=== PATIENT | male | born 1950 | race Caucasian/White ===

== ENCOUNTER 2018-09-25 02:40 | Emergency (ER) | payer MEDICARE, OTHER ==
[~2018-09-25] VITALS: Ht 180.3 cm; Wt 116.6 kg
[2018-09-25] MEDS ORDERED: FAMOTIDINE 20MG/2ML IV (PEPCID) IVP ONE (03:00)
[2018-09-25] MEDS ORDERED: ASPIRIN 81 MG CHEW (CHILDREN'S ASA) PO ONE (03:00)
[2018-09-25] MEDS ORDERED: NITROGLYCERIN 0.4 MG SL TABS BTL 25'S SL PRN (03:00)
--- NOTE | 2018-09-25 03:12 | ED Chest Pain ---
General Chief Complaint: Chest Pain Stated Complaint: CHEST PAIN Nursing Triage Note: PT COMPLAINING OF CHEST PAIN THAT STARTED LAST NIGHT AND AGAIN TONIGHT. PT'S PAIN RADIATING DOWN BOTH ARMS AND PT COMPLAINING OF NAUSEA WELL. PT HAS A HX OF STENT PLACEMENT Nursing Sepsis Screen: No Definite Risk Source: patient Exam Limitations: no limitations History of Present Illness Date Seen by Provider: Sep 25, 2018 Time Seen by Provider: 03:00 Initial Comments Patient is a 68-year-old male with known history of CAD with remote stent placement who presents with epigastric chest discomfort radiating to bilateral shoulders down through his elbows. Since the onset was 2 hours ago after going to bed. Patient took 1 baby aspirin after symptoms began which they have provided improvement.Residual pain is now rated as mild to moderate. Associated symptoms include nausea and sweats. Denies shortness of breath. No leg pain or swelling. Denies fever chills. Denies abdominal pain. Patient states he had a similar episode of chest pain last evening after going to bed but did not have chest pain throughout the day yesterday. Patient states his last treadmill stress test was approximately 4 years ago. Timing/Duration: 1-3 hours Severity/Quality: moderate Location: substernal Radiation: shoulders Activities at Onset: sleep Prior CP/Workup: cardiac cath Modifying Factors: improves with lying down ASA po ORTHO RN: Yes NTG SL ORTHO RN: No Associated Symptoms: heartburn, nausea/vomiting Allergies and Home Medications Allergies Coded Allergies: simvastatin (Verified Allergy, Unknown, 09/25/18) Patient Home Medication List Home Medication List Reviewed: Yes Review of Systems Review of Systems Constitutional: no symptoms reported EENTM: No Symptoms Reported Respiratory: No Symptoms Reported Cardiovascular: See HPI Gastrointestinal: See HPI Genitourinary: No Symptoms Reported Musculoskeletal: no symptoms reported Skin: no symptoms reported Endocrine: No Symptoms Reported Hematologic/Lymphatic: No Symptoms Reported Past Mpbrrar-Carjcr-Xrwvrl Hx Past Med/Social Hx: Reviewed Nursing Past Med/Soc Hx Patient Social History Alcohol Use: Denies Use Recreational Drug Use: No Smoking Status: Never a Smoker 2nd Hand Smoke Exposure: No Recent Foreign Travel: No Contact w/Someone Who Travel: No Recent Infectious Disease Expo: No Recent Hopitalizations: No Physical Abuse: No Sexual Abuse: No Mistreated: No Past Medical History Surgeries: Yes Coronary Stent Respiratory: No Cardiac: Yes High Cholesterol, Hypertension Neurological: No Genitourinary: No Gastrointestinal: No Musculoskeletal: No Endocrine: No HEENT: No Cancer: No Psychosocial: No Integumentary: No Blood Disorders: No Physical Exam Vital Signs Vital Signs - First Documented 09/25/18 02:42 Temp 98.3 Pulse 73 Resp 20 B/P (MAP) 144/70 (94) Pulse Ox 94 O2 Delivery Room Air Capillary Refill : Less Than 3 Seconds Height, Weight, BMI Height: 5'11.00" Weight: 257lbs. oz. 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 Norm as Tested Lymphatic: No Adenopathy Focused Exam Sepsis Stage: Ruled Out Progress/Results/Core Measures Results/Orders Lab Results Laboratory Tests Test 09/25/18 02:47 09/25/18 05:00 Range/Units White Blood Count 7.7 4.3-11.0 10^3/uL Red Blood Count 4.67 4.35-5.85 10^6/uL Hemoglobin 15.0 13.3-17.7 G/DL Hematocrit 44 40-54 % Mean Corpuscular Volume 94 80-99 FL Mean Corpuscular Hemoglobin 32 25-34 PG Mean Corpuscular Hemoglobin Concent 34 32-36 G/DL Red Cell Distribution Width 13.1 10.0-14.5 % Platelet Count 257 130-400 10^3/uL Mean Platelet Volume 10.3 7.4-10.4 FL Neutrophils (%) (Auto) 60 42-75 % Lymphocytes (%) (Auto) 21 12-44 % Monocytes (%) (Auto) 9 0-12 % Eosinophils (%) (Auto) 9 0-10 % Basophils (%) (Auto) 1 0-10 % Neutrophils # (Auto) 4.6 1.8-7.8 X 10^3 Lymphocytes # (Auto) 1.6 1.0-4.0 X 10^3 Monocytes # (Auto) 0.7 0.0-1.0 X 10^3 Eosinophils # (Auto) 0.7 H 0.0-0.3 10^3/uL Basophils # (Auto) 0.1 0.0-0.1 10^3/uL Neutrophils % (Manual) 65 % Lymphocytes % (Manual) 14 % Monocytes % (Manual) 10 % Eosinophils % (Manual) 10 % Basophils % (Manual) 1 % Band Neutrophils 0 % Sodium Level 137 135-145 MMOL/L Potassium Level 3.1 L 3.6-5.0 MMOL/L Chloride Level 95 L 98-107 MMOL/L Carbon Dioxide Level 23 21-32 MMOL/L Anion Gap 19 H 5-14 MMOL/L Blood Urea Nitrogen 18 7-18 MG/DL Creatinine 0.84 0.60-1.30 MG/DL Estimat Glomerular Filtration Rate > 60 BUN/Creatinine Ratio 21 Glucose Level 106 H 70-105 MG/DL Calcium Level 8.8 8.5-10.1 MG/DL Corrected Calcium 8.6 8.5-10.1 MG/DL Total Bilirubin 0.3 0.1-1.0 MG/DL Aspartate Amino Transf (AST/SGOT) 14 5-34 U/L Alanine Aminotransferase (ALT/SGPT) 15 0-55 U/L Alkaline Phosphatase 79 40-136 U/L Troponin I < 0.30 <0.30 NG/ML Total Protein 7.4 6.4-8.2 GM/DL Albumin 4.2 3.2-4.5 GM/DL Lipase 23 8-78 U/L My Orders Orders - ANTON GARDNER DO Cbc And Manual Diff (09/25/18 02:57) Comprehensive Metabolic Panel (09/25/18 02:57) Troponin I (09/25/18 02:57) Chest 1 View Ap/Pa Only (09/25/18 02:57) Lipase (09/25/18 02:58) Aspirin Chewable Tablet (Baby Aspirin Ch (09/25/18 03:00) Famotidine Injection (Pepcid Injection) (09/25/18 03:00) Nitroglycerin 0.4 Mg Btl 25's (Nitrostat (09/25/18 03:00) Antacid Suspension (Mylanta Suspension (09/25/18 03:54) Lidocaine 2% Viscous 15 Ml (Xylocaine Vi (09/25/18 03:55) Antacid Suspension (Mylanta Suspension (09/25/18 04:15) Lidocaine 2% Viscous 15 Ml (Xylocaine Vi (09/25/18 04:15) Probnp Fs (09/25/18 04:18) Troponin I (09/25/18 04:18) Medications Given in ED Current Medications Medications Dose Ordered Sig/[place] Route Start Time Stop Time Status Last Admin Dose Admin Al Hydrox/Mg Hydrox/Simethicone 30 ml ONCE ONCE PO 09/25/18 04:15 09/25/18 04:16 DC 09/25/18 04:07 30 ML Aspirin 162 mg ONCE ONCE PO 09/25/18 03:00 09/25/18 03:07 DC 09/25/18 03:17 162 MG Famotidine 20 mg ONCE ONCE IVP 09/25/18 03:00 09/25/18 03:07 DC 09/25/18 03:17 20 MG Lidocaine HCl 5 ml ONCE ONCE PO 09/25/18 04:15 09/25/18 04:16 DC 09/25/18 04:07 5 ML Nitroglycerin 1 TAB Q 5 MIN X 3 NEEDED PRN SL 09/25/18 03:00 09/25/18 03:17 0.4 MG Vital Signs/I&O 09/25/18 02:42 Temp 98.3 Pulse 73 Resp 20 B/P (MAP) 144/70 (94) Pulse Ox 94 O2 Delivery Room Air Blood Pressure Mean: 94 Departure Communication (Admissions) EKG reviewed: Normal sinus rhythm, rate 72, bifascicular block, no acute ST-T wave changes. QTC 468. Atypical chest pain beginning at rest. Aspirin, nitroglycerin and Pepcid given. Symptoms improved. GI cocktail given, patient pain free. Repeat troponin negative. Patient declines transferred to [facility] evaluated by his sewing machine mechanic. He prefers to follow up as an outpatient and agrees to contact them this morning. Return precautions reviewed Impression Primary Impression: Chest pain Disposition: 01 HOME, SELF-CARE Condition: Improved Departure-Patient Inst. Patient Instructions: Chest Pain (DC) Add. Discharge Instructions: You were evaluated in the emergency department for chest pain. EKG, lab and chest x-ray were performed and are nondiagnostic. The exact cause her symptoms has not been determined, but may be related to a decrease in your oxygen levels at night. Please contact your sewing machine mechanic later today and schedule follow-up appointment since possible for evaluation of chest pain. Contact your primary care physician for consideration of a sleep study. Return to the ED if new or worsening symptoms All discharge instructions reviewed with patient and/or family. Voiced understanding. ANTON GARDNER DO Sep 25, 2018 03:12
[2018-09-25 03:20] LABS: BASOPHILS % (AUTO) 1 % (0-10); EOSINOPHILS % (AUTO) 9 % (0-10); HEMATOCRIT 44 % (40-54); LYMPHOCYTES % (AUTO) 21 % (12-44); MEAN CORPUSCULAR HEMOGLOBIN 32 PG (25-34); MEAN CORPUSCULAR HGB CONC 34 G/DL (32-36); MEAN CORPUSCULAR VOLUME 94 FL (80-99); MEAN PLATELET VOLUME 10.3 FL (7.4-10.4); MONOCYTES % (AUTO) 9 % (0-12); NEUTROPHILS % (AUTO) 60 % (42-75); PLATELET COUNT 257 10^3/uL (130-400); RED CELL DISTRIBUTION WIDTH 13.1 % (10.0-14.5); WHITE BLOOD COUNT 7.7 10^3/uL (4.3-11.0)
[2018-09-25 03:21] LABS: BASOPHILS # (AUTO) 0.1 10^3/uL (0.0-0.1); EOSINOPHILS # (AUTO) 0.7 10^3/uL (0.0-0.3); LYMPHOCYTES # (AUTO) 1.6 X 10^3 (1.0-4.0); MONOCYTES # (AUTO) 0.7 X 10^3 (0.0-1.0); NEUTROPHILS # (AUTO) 4.6 X 10^3 (1.8-7.8)
[2018-09-25 03:35] LABS: BAND NEUTROPHILS 0 %; BASOPHILS % (MANUAL) 1 %; EOSINOPHILS % (MANUAL) 10 %; LYMPHOCYTES % (MANUAL) 14 %; MONOCYTES % (MANUAL) 10 %; NEUTROPHILS % (MANUAL) 65 %
[2018-09-25 03:41] LABS: CHLORIDE 95 MMOL/L (98-107); POTASSIUM 3.1 MMOL/L (3.6-5.0); SODIUM 137 MMOL/L (135-145)
[2018-09-25 03:42] LABS: ALANINE AMINOTRANSFERASE 15 U/L (0-55); ALKALINE PHOSPHATASE 79 U/L (40-136); BILIRUBIN,TOTAL 0.3 MG/DL (0.1-1.0); BUN/CREATININE RATIO 21; CALCIUM 8.8 MG/DL (8.5-10.1); CARBON DIOXIDE 23 MMOL/L (21-32); CREATININE SERUM 0.84 MG/DL (0.60-1.30); GFR ESTIMATED > 60; GLUCOSE 106 MG/DL (70-105); TOTAL PROTEIN 7.4 GM/DL (6.4-8.2)
[2018-09-25 03:43] LABS: ALBUMIN 4.2 GM/DL (3.2-4.5); LIPASE 23 U/L (8-78)
[2018-09-25] MEDS ORDERED: ANTACID SUSP 30 ML UDC (MYLANTA) ONE (03:54)
[2018-09-25] MEDS ORDERED: LIDOCAINE 2% VISCOUS 15 ML UDC ONE (03:55)
[2018-09-25] MEDS ORDERED: ANTACID SUSP 30 ML UDC (MYLANTA) PO ONE (04:15)
[2018-09-25] MEDS ORDERED: LIDOCAINE 2% VISCOUS 15 ML UDC PO ONE (04:15)
[2018-09-25 06:08] VITALS: BP 132/75
--- NOTE | 2018-09-25 06:36 | Diagnostic Imaging Report ---
INDICATION: Chest pain into left arm. FINDINGS: Portable chest. Mild bibasilar atelectasis. The lungs are otherwise clear. The heart is not enlarged. No pulmonary edema. No pneumothorax or pleural effusion. IMPRESSION: Mild bibasilar atelectasis. Dictated by: Dictated on workstation # [id number]
[2018-09-28] MEDS ORDERED: ROSU20TA31 PO (12:31)
== END 2018-09-25 06:07 | disposition home or self-care (01) ==
LOC: ER FS 02:43
DX: R07.9 Chest pain, unspecified (principal); I10 Essential (primary) hypertension; I25.10 Atherosclerotic heart disease of native coronary artery without angina pectoris; E78.00 Pure hypercholesterolemia, unspecified; Z95.5 Presence of coronary angioplasty implant and graft; Z88.8 Allergy status to other drugs, medicaments and biological substances
CPT/HCPCS: 36415; 71045; 80053; 83690; 83880; 84484; 85007; 85027; 93005; 96374

== ENCOUNTER 2018-09-28 10:56 | Emergency (ER) | payer MEDICARE, OTHER ==
[~2018-09-28] VITALS: Ht 180.3 cm; Wt 116.6 kg
--- NOTE | 2018-09-28 10:58 | NUR ---
Arrival to room from registration desk with c/o CP again. Here on early hours of 09/25 with CP starting about 0200. Pt reports pain started in night 0200 and continues to worsen again. 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 Pt took 3 Baby ASA at that time in night and then added then add'l ASA 81 mg with morning meds. Dr notified and no add'l ASA ordered. Pain rated "3"/10 currently but has been up as high "5-6". Placed on monitor with SB Rate 52 noted, no ectopy. helps support pt looked like he was going to pass out before she got him here to ER. Pt reports the severe feeling he was going to vomit but no retching noted here. Pt reports he went home on 09/25/18 to f/u with Dr Mina roberts and requested medical records to be sent. Pt states he got relief after NTG, GI COcktail, and O2 given.
--- NOTE | 2018-09-28 11:01 | NUR ---
EKG done by RN's. Sinus Bradycardia rate [address] Jain viewed EKG, he is present in room.
--- NOTE | 2018-09-28 11:15 | NUR ---
SL 20 ga to RAC placed. Labs drawn and sent.
[2018-09-28] MEDS ORDERED: NS IV 1000 ML 1,000 ML IV STA (11:20)
[2018-09-28] MEDS ORDERED: ONDANSETRON 4 MG/2 ML (SDV) Z0FRAN IVP STA (11:20)
--- NOTE | 2018-09-28 11:20 | NUR ---
Pt's reports they had been on a long trip into [facility] prior to pt's 09/25/18 chest pain. Yesterday the couple took a smaller car trip. Denies leg pains that are not different than some cramping pt reports he experiences.
[2018-09-28] MEDS ORDERED: morphine INJ 10 MG/ML 1ML (SYR OR VIAL) IVP STA (11:21)
[2018-09-28] MEDS ORDERED: PANTOPRAZOLE 40 MG (PROTONIX) VIAL IV STA (11:24)
--- NOTE | 2018-09-28 11:24 | ED Chest Pain ---
General Chief Complaint: Chest Pain Stated Complaint: DIZZY, CHEST PAIN, NAUSEA Source: patient, family (spouse) History of Present Illness Date Seen by Provider: Sep 28, 2018 Time Seen by Provider: 10:56 Initial Comments 68 yo M presents with substernal chest pain radiating to both arms. It has been going on for several days and seems to be worse at night when he is laying down. He was seen on SundaySeptember 25 and had improvement with a GI Cocktail. He decided to go home that night and follow up with clinic instead of being transferred for cardiology evaluation. His states they also just got back from a long car trip from [place]. He does have some calf pain as well. He was told that he had low oxygen level that might be causing his symptoms on Sunday. He was told to follow-up with his portrait painter and primary doctor on or Sunday. He called them and is supposed to be seen this following Sunday through the clinic. However he is continuing to have symptoms especially each night. Last night he said was the worst and he woke up at approximately 2 AM very short of breath. His chest pain and shortness of breath has mild improvement when he sits up. He had taken 3 baby aspirin when he woke up and his symptoms early this morning. He had nearly passed out at home just prior to coming into the emergency Department and his had made him come to the ER. He also is having nausea and feels like he might throw up. He denies any other activities that seem to make his symptoms worse. He does feel lightheaded laying in the bed even. He has not had any cough or congestion. He reports that some of his symptoms feel similar to when he has had a nuclear stress test in the past. Allergies and Home Medications Allergies Coded Allergies: simvastatin (Verified Allergy, Unknown, 09/25/18) acetaminophen (Unverified Adverse Reaction, Unknown, 09/28/18) propoxyphene (Unverified Adverse Reaction, Unknown, 09/28/18) Home Medications Amlodipine Besylate 10 Mg Tablet, 10 MG PO DAILY, (Reported) Aspirin 81 Mg Tablet.dr, 81 MG PO DAILY, (Reported) Atenolol 50 Mg Tablet, 50 MG PO DAILY, (Reported) Benazepril HCl 40 Mg Tab, 40 MG PO DAILY, (Reported) Finasteride 5 Mg Tablet, 5 MG PO DAILY, (Reported) Hydrochlorothiazide 12.5 Mg Capsule, 12.5 MG PO DAILY, (Reported) Magnesium Oxide 250 Mg Tablet, 250 MG PO DAILY, (Reported) Meloxicam 15 Mg Tablet, 15 MG PO DAILY, (Reported) Potassium Gluconate 99 Mg Tablet, 99 MG PO DAILY, (Reported) Rosuvastatin Calcium 20 Mg Tablet, 20 MG PO HS, (Reported) [D3] , 1,000 PO DAILY, (Reported) [Tamsulosin] 0.4 , 0.4 MG PO DAILY, (Reported) Patient Home Medication List Home Medication List Reviewed: Yes Review of Systems Review of Systems Constitutional: No chills; dizziness; No fever; malaise EENTM: No Symptoms Reported Respiratory: SOA at Rest; Denies Stridor, Denies Wheezing Cardiovascular: Chest Pain (substernal), Lightheadedness Gastrointestinal: Nausea Genitourinary: No Symptoms Reported Musculoskeletal: other (some calf pain) Skin: no symptoms reported Psychiatric/Neurological: No Symptoms Reported Endocrine: No Symptoms Reported Past Pdgljmv-Ieqtdj-Wdtvih Hx Past Med/Social Hx: Reviewed Nursing Past Med/Soc Hx Patient Social History 2nd Hand Smoke Exposure: No Recent Foreign Travel: No Contact w/Someone Who Travel: No Recent Hopitalizations: No Past Medical History Surgeries: Yes Coronary Stent Respiratory: No Cardiac: Yes High Cholesterol, Hypertension Neurological: No Genitourinary: No Gastrointestinal: No Musculoskeletal: No Endocrine: No HEENT: No Cancer: No Psychosocial: No Integumentary: No Blood Disorders: No Physical Exam Vital Signs Vital Signs - First Documented 09/28/18 10:58 Temp 98.5 Pulse 52 Resp 18 B/P (MAP) 105/69 (81) Pulse Ox 93 O2 Delivery Nasal Cannula O2 Flow Rate 2.0 Capillary Refill : Height, Weight, BMI Height: 5'11.00" Weight: 257lbs. oz. 116.303129oi; BMI Method:Stated General Appearance: WD/WN, Anxious, Mild Distress HEENT: PERRL/EOMI, Normal ENT Inspection, Pharynx Normal Neck: Full Range of Motion, Normal Inspection, Non Tender, Supple; No Carotid Bruit Respiratory: Chest Non Tender, Lungs Clear, Normal Breath Sounds, No Accessory Muscle Use, No Respiratory Distress Cardiovascular: No Edema, Normal Peripheral Pulses, Bradycardia Gastrointestinal: Normal Bowel Sounds, No Organomegaly, No Pulsatile Mass, Non Tender, Soft Extremity: Normal Capillary Refill, Normal Inspection, Normal Range of Motion, Pedal Edema (trace bilateral) Neurologic/Psychiatric: Alert, Oriented x3, No Motor/Sensory Deficits Skin: Normal Color, Warm/Dry Critical Care Note Critical Care Total Time (minutes) 70 minutes Progress 70 minutes was spent in critical care time for the patient. Time was spent in direct care of the patient and excluding separately billable procedures. Time was spent obtaining history from patient and spouse, reviewing the patient's medical record, ordering tests and reviewing results, ordering interventions and reviewing response, discussion with consultants, discussion with the patient and family about results and plan, documentation in the chart. Progress/Results/Core Measures Results/Orders Lab Results Laboratory Tests Test 09/28/18 11:15 Range/Units White Blood Count 8.6 4.3-11.0 10^3/uL Red Blood Count 4.91 4.35-5.85 10^6/uL Hemoglobin 15.6 13.3-17.7 G/DL Hematocrit 46 40-54 % Mean Corpuscular Volume 93 80-99 FL Mean Corpuscular Hemoglobin 32 25-34 PG Mean Corpuscular Hemoglobin Concent 34 32-36 G/DL Red Cell Distribution Width 13.0 10.0-14.5 % Platelet Count 269 130-400 10^3/uL Mean Platelet Volume 10.0 7.4-10.4 FL Neutrophils (%) (Auto) 84 H 42-75 % Lymphocytes (%) (Auto) 10 L 12-44 % Monocytes (%) (Auto) 5 0-12 % Eosinophils (%) (Auto) 1 0-10 % Basophils (%) (Auto) 1 0-10 % Neutrophils # (Auto) 7.2 1.8-7.8 X 10^3 Lymphocytes # (Auto) 0.9 L 1.0-4.0 X 10^3 Monocytes # (Auto) 0.5 0.0-1.0 X 10^3 Eosinophils # (Auto) 0.0 0.0-0.3 10^3/uL Basophils # (Auto) 0.1 0.0-0.1 10^3/uL Prothrombin Time 13.6 12.2-14.7 SEC INR Comment 1.0 0.8-1.4 Activated Partial Thromboplast Time 25 24-35 SEC Sodium Level 139 135-145 MMOL/L Potassium Level 3.7 3.6-5.0 MMOL/L Chloride Level 101 98-107 MMOL/L Carbon Dioxide Level 24 21-32 MMOL/L Anion Gap 14 5-14 MMOL/L Blood Urea Nitrogen 12 7-18 MG/DL Creatinine 0.77 0.60-1.30 MG/DL Estimat Glomerular Filtration Rate > 60 BUN/Creatinine Ratio 16 Glucose Level 155 H 70-105 MG/DL Calcium Level 8.6 8.5-10.1 MG/DL Corrected Calcium 8.6 8.5-10.1 MG/DL Magnesium Level 2.0 1.8-2.4 MG/DL Total Bilirubin 0.5 0.1-1.0 MG/DL Aspartate Amino Transf (AST/SGOT) 23 5-34 U/L Alanine Aminotransferase (ALT/SGPT) 14 0-55 U/L Alkaline Phosphatase 81 40-136 U/L Troponin I 1.01 *H <0.30 NG/ML Pro-B-Type Natriuretic Peptide 253.7 H <75.0 PG/ML Total Protein 7.3 6.4-8.2 GM/DL Albumin 4.0 3.2-4.5 GM/DL My Orders Orders - GERALDINE CASTILLO MD Cbc With Automated Diff (09/28/18 11:15) Magnesium (09/28/18 11:15) Comprehensive Metabolic Panel (09/28/18 11:15) Protime With Inr (09/28/18 11:15) Partial Thromboplastin Time (09/28/18 11:15) O2 (09/28/18 11:15) Ed Iv/Invasive Line Start (09/28/18 11:15) Troponin I (09/28/18 11:15) Ct Angio Chest W (09/28/18 11:15) Probnp Fs (09/28/18 11:15) Ns Iv 1000 Ml (Sodium Chloride 0.9%) (09/28/18 11:20) Ondansetron Injection (Zofran Injectio (09/28/18 11:20) Morphine Injection (Morphine Injection (09/28/18 11:21) Pantoprazole Injection (Protonix Injecti (09/28/18 11:24) Iohexol Injection (Omnipaque 350 Mg/Ml 1 (09/28/18 11:30) Received Contrast (Hold Metformin- Contr (09/28/18 11:30) Sodium Chloride Flush (Catheter Flush Sy (09/28/18 11:30) Ns (Ivpb) (Sodium Chloride 0.9% Ivpb Bag (09/28/18 11:30) Ekg Tracing (09/28/18 12:20) Ns Iv 1000 Ml (Sodium Chloride 0.9%) (09/28/18 12:30) Heparin Drip 54010 Unit/500ml (Heparin (09/28/18 12:23) Heparin (Bolus Per Protocol) (Heparin (B (09/28/18 12:23) Medications Given in ED Current Medications Medications Dose Ordered Sig/[place] Route Start Time Stop Time Status Last Admin Dose Admin Heparin Sodium (Porcine) HEPARIN BOLUS ACS PROTOC... 1223 ONCE IV 09/28/18 12:23 09/28/18 12:26 DC 09/28/18 13:01 5,000 UNIT Heparin Sodium/ Dextrose 500 ml @ 0 mls/hr Q0M ONCE IV 09/28/18 12:23 09/28/18 12:26 DC 09/28/18 13:02 20 MLS/HR Iohexol 150 ml ONCE ONCE IV 09/28/18 11:30 09/28/18 11:40 DC 09/28/18 12:15 125 ML Sodium Chloride 10 ml NEEDED PRN IV 09/28/18 11:30 09/28/18 14:03 DC 09/28/18 12:15 10 ML Sodium Chloride 100 ml ONCE ONCE IV 09/28/18 11:30 09/28/18 11:40 DC 09/28/18 12:15 80 ML Vital Signs/I&O 09/28/18 09/28/18 09/28/18 09/28/18 10:58 10:58 11:15 11:41 Temp 98.5 98.5 Pulse 52 Resp 18 B/P (MAP) 105/69 (81) Pulse Ox 93 93 O2 Delivery Nasal Cannula Nasal Cannula Nasal Cannula O2 Flow Rate 2.0 2.0 2.00 Progress Progress Note #1: Progress Note check labs and ECG. With his recent travel and complaint of near syncope and low oxygen will obtain a CT scan of chest to evaluate for possible PE. For his pain will try a low dose of Morphine 2 mg IV and give 1 L of NS since his blood pressure is low at 100 systolic. Will give Zofran 4 mg IV for nausea. since he had improvement with GI cocktail Sunday will try Protonix IV as well since he has the nausea. Progress Note #2: Progress Note On return from CT scan the patient reports that his chest pain has resolved. His blood pressure has improved as well as the IV fluids have infused. His heart rate continues to fluctuate from 50-60 bpm. He has improved oxygenation with sup plemental oxygen at 2 L/m. His labs are showing that he has stable CBC without acute significant abnormality. However his chemistry panel did come back showing an elevated troponin I at 1.01. A repeat electrocardiogram was obtained and does show he has improved T waves compared to his initial electrocardiogram with global T-wave flattening. Heparin was started as an anticoagulant. As the patient had already taken aspirin at home he had not been given any additional aspirin here in the ED. Since he was not having any chest pain no nitroglycerin was given. Since he was not currently having any further chest pain and he was bradycardic no beta blockers were given. A page was placed to [facility] in [place] and Dr. Fonseca was the construction specialist [employer] Decorator and he accepted the pt in transfer through the transfer center. Progress Note #3: Progress Note CT of his chest came back as negative for PE or infiltrate prior to his transfer. Pt was updated on these results. Initial ECG Impression Date: Sep 28, 2018 Initial ECG Impression Time: 11:01 Initial ECG Rate: 46 Initial ECG Rhythm: S.Gabriel Comment Sinus bradycardia with heart rate of 46 bpm. AZ interval 187 ms. 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 QT interval of 510 ms and a QT corrected interval 447 ms. He has T-wave flattening throughout. There is no acute ST elevation. EKG : EKG Time: 12:11 Rate: 53 Rhythm: S.Gabriel Comment Sinus rhythm with heart rate of 53 bpm. Right Bundle-branch and left anterior fascicular block. AZ interval of 195 ms. QT interval 486 ms and QT corrected interval 457 ms. This shows improved T waves from the previous tracing. Diagnostic Imaging Diagonstic Imaging: CT Plain Films/CT/US/NM/MRI: chest Comments NAME: KILEY VERA [facility] REC#: [id number] PT STATUS: REG ER : 1950 PHYSICIAN: GERALDINE CASTILLO MD ADMIT DATE: 09/28/18/ER FS Draft Date of Exam:09/28/18 CT ANGIO CHEST W PROCEDURE: CT angiography of the chest with contrast. TECHNIQUE: Multiple contiguous axial images were obtained through the chest after uneventful bolus administration of intravenous contrast. 3D reconstructed CTA MIP acquisitions were also performed. Auto Exposure Controls were utilized during the CT exam to meet ALARA standards for radiation dose reduction. INDICATION: Shortness of breath. Chest pain. COMPARISON: Chest radiograph 09/25/2018. FINDINGS: Examination limited by motion. No large central pulmonary artery filling defects. No thoracic aortic aneurysm or dissection. Moderate atherosclerotic calcifications. Cardiomegaly. No pericardial effusion. No hilar or axillary lymphadenopathy. Indeterminant mass in the upper mediastinum appears well circumscribed and contains a few small punctate calcifications. This measures approximately 3.7 x 2.6 cm no dense consolidation in the lungs. No pleural effusion or pneumothorax. Small esophageal hiatal hernia. Visualized upper abdominal contents are unremarkable. No acute osseous findings. IMPRESSION: 1. No pulmonary emboli. 2. No acute CT findings in the chest. 3. Indeterminant mass measuring up to 3.7 cm in the inferior mediastinum, is well-circumscribed and contains central calcification. This has a relatively benign appearance but is indeterminate. Please correlate with history. This could be further characterized with a nonemergent MRI. Dictated on workstation # [id number] Dict: 09/28/18 1218 Trans: 09/28/18 1234 [facility] [id number] Interpreted by: SID MARQUEZ MD Electronically signed by: Departure Impression Primary Impression: Non-ST elevated myocardial infarction Additional Impressions: Near syncope Elevated troponin I level Sinus bradycardia Disposition: [facility]-TRM HOSP Condition: Stable Transfer Time Spoke to Accepting Phy: 12:22 Transfer Progress Notes [address] Fonseca, Print Decorator, and he accepted the patient in transfer to [facility] for his elevated troponin and non STEMI. I also informed him that I was concerned for possible PE and have CTA chest done but report is still pending. Will start Heparin in the meantime. Will fax face sheet with current vitals to [facility]. they will call with a bed as soon as one is available. Transfer Facility: Method of Transfer: EMS Departure-Patient Inst. Referrals: NO,LOCAL PHYSICIAN (PCP/Family) Primary Care Physician GERALDINE CASTILLO MD Sep 28, 2018 11:24
--- NOTE | 2018-09-28 11:27 | NUR ---
Pt is very anxious, reports pain returning and increased to "5-6"/10. Reported to Dr Jain patient's c/o and became very nauseated.
[2018-09-28 11:29] LABS: WHITE BLOOD COUNT 8.6 10^3/uL (4.3-11.0)
[2018-09-28 11:30] LABS: HEMATOCRIT 46 % (40-54); HEMOGLOBIN 15.6 G/DL (13.3-17.7); MEAN CORPUSCULAR HEMOGLOBIN 32 PG (25-34); MEAN CORPUSCULAR HGB CONC 34 G/DL (32-36); MEAN CORPUSCULAR VOLUME 93 FL (80-99); PLATELET COUNT 269 10^3/uL (130-400)
[2018-09-28] MEDS ORDERED: NS 100 ML (IVPB) BAG IV ONE (11:30)
[2018-09-28] MEDS ORDERED: CATHETER FLUSH 10 ML SYR IV PRN (11:30)
[2018-09-28] MEDS ORDERED: HOLD METFORMIN - RECEIVED CONTRAST 20 ML VIAL IV SCH (11:30)
[2018-09-28] MEDS ORDERED: IOHEXOL 350 MG/ML 150 ML (OMNIPAQUE 350) VIAL IV ONE (11:30)
--- NOTE | 2018-09-28 11:30 | NUR ---
NIBP 89/56, monitor sinus bradycardia rate 48. C/O nausea, no emesis or retching. Pt lying still. is very apprehensive and asking pt "are you alright" numerous times.
[2018-09-28 11:31] LABS: BASOPHILS # (AUTO) 0.1 10^3/uL (0.0-0.1); BASOPHILS % (AUTO) 1 % (0-10); EOSINOPHILS % (AUTO) 1 % (0-10); LYMPHOCYTES # (AUTO) 0.9 X 10^3 (1.0-4.0); LYMPHOCYTES % (AUTO) 10 % (12-44); MONOCYTES # (AUTO) 0.5 X 10^3 (0.0-1.0); MONOCYTES % (AUTO) 5 % (0-12); NEUTROPHILS # (AUTO) 7.2 X 10^3 (1.8-7.8); NEUTROPHILS % (AUTO) 84 % (42-75)
--- NOTE | 2018-09-28 11:33 | NUR ---
Zofran 4 mg SIVP @ 1133 after NS bolus started at 1132.
--- NOTE | 2018-09-28 11:38 | NUR ---
Pt's NIBP 97/55, monitor SB rate 46. Pain reported "3"/10.
--- NOTE | 2018-09-28 11:41 | NUR ---
Morphine 2 mg given SIVP for chest pain c/o with improved BP noted prior.
--- NOTE | 2018-09-28 11:42 | NUR ---
NIBP 101/56, monitor reveals SB rate 50. Pt had an increase of rate to 56 immediately after Morphine given.
[2018-09-28 11:45] LABS: PROTHROMBIN TIME PATIENT 13.6 SEC (12.2-14.7)
--- NOTE | 2018-09-28 11:48 | NUR ---
To CT per cart on monitor and O2 accompanied by RN.
[2018-09-28 11:56] LABS: POTASSIUM 3.7 MMOL/L (3.6-5.0); SODIUM 139 MMOL/L (135-145)
[2018-09-28 11:57] LABS: ALANINE AMINOTRANSFERASE 14 U/L (0-55); ALKALINE PHOSPHATASE 81 U/L (40-136); BILIRUBIN,TOTAL 0.5 MG/DL (0.1-1.0); BUN/CREATININE RATIO 16; CALCIUM 8.6 MG/DL (8.5-10.1); CARBON DIOXIDE 24 MMOL/L (21-32); CHLORIDE 101 MMOL/L (98-107); CREATININE SERUM 0.77 MG/DL (0.60-1.30); GFR ESTIMATED > 60; GLUCOSE 155 MG/DL (70-105); TOTAL PROTEIN 7.3 GM/DL (6.4-8.2)
--- NOTE | 2018-09-28 11:58 | NUR ---
Dr Jain took critical lab value troponin.
--- NOTE | 2018-09-28 12:00 | NUR ---
2nd IV site placed a 20 ga SL LAC as Dr Jain requested.
--- NOTE | 2018-09-28 12:00 | NUR ---
Returned to room from CT. Patient maintained on O2 at 2L/m and cardiac/NIBP/SpO2 monitoring.
[2018-09-28] MEDS ORDERED: HEParin DRIP 25000 UNIT/500ML 500 ML IV ONE (12:23)
[2018-09-28] MEDS ORDERED: HEParin 1000 UNIT/ML (10ML VIAL) FOR BOLUS IV ONE (12:23)
[2018-09-28] MEDS ORDERED: NS IV 1000 ML 1,000 ML IV SCH (12:30)
[2018-09-28] MEDS ORDERED: AMLO10TA7 PO (12:31)
[2018-09-28] MEDS ORDERED: TAMSULOSIN PO (12:31)
[2018-09-28] MEDS ORDERED: ASPI-983 PO (12:31)
[2018-09-28] MEDS ORDERED: MAGN250T13 PO (12:31)
[2018-09-28] MEDS ORDERED: ROSU20TA32 PO (12:31)
[2018-09-28] MEDS ORDERED: HYDR12.5 PO (12:31)
[2018-09-28] MEDS ORDERED: VITA100033 PO (12:31)
[2018-09-28] MEDS ORDERED: Fish Oil (12:31)
[2018-09-28] MEDS ORDERED: MELO15TA39 PO (12:31)
[2018-09-28] MEDS ORDERED: ATEN50TA PO (12:31)
[2018-09-28] MEDS ORDERED: BENA40TA5 PO (12:31)
[2018-09-28] MEDS ORDERED: FINA5TAB6 PO (12:31)
[2018-09-28] MEDS ORDERED: POTA99TA21 PO (12:31)
[2018-09-28] MEDS ORDERED: FLAX SEED (12:31)
--- NOTE | 2018-09-28 12:35 | Diagnostic Imaging Report ---
PROCEDURE: CT angiography of the chest with contrast. TECHNIQUE: Multiple contiguous axial images were obtained through the chest after uneventful bolus administration of intravenous contrast. 3D reconstructed CTA MIP acquisitions were also performed. Auto Exposure Controls were utilized during the CT exam to meet ALARA standards for radiation dose reduction. INDICATION: Shortness of breath. Chest pain. COMPARISON: Chest radiograph 09/25/2018. FINDINGS: Examination limited by motion. No large central pulmonary artery filling defects. No thoracic aortic aneurysm or dissection. Moderate atherosclerotic calcifications. Cardiomegaly. No pericardial effusion. No hilar or axillary lymphadenopathy. Indeterminant mass in the upper mediastinum appears well circumscribed and contains a few small punctate calcifications. This measures approximately 3.7 x 2.6 cm no dense consolidation in the lungs. No pleural effusion or pneumothorax. Small esophageal hiatal hernia. Visualized upper abdominal contents are unremarkable. No acute osseous findings. IMPRESSION: 1. No pulmonary emboli. 2. No acute CT findings in the chest. 3. Indeterminant mass measuring up to 3.7 cm in the inferior mediastinum, is well-circumscribed and contains central calcification. This has a relatively benign appearance but is indeterminate. Please correlate with history. This could be further characterized with a nonemergent MRI. Dictated by: Dictated on workstation # [id number]
--- NOTE | 2018-09-28 12:48 | NUR ---
Patient signs consent to transfer.
--- NOTE | 2018-09-28 13:01 | NUR ---
Heparin per ACS protocol began. Bolus 5000 units = 5 ml given as patient kg wt over dose max limit. Dosages checked with Daphne Younger RN.
--- NOTE | 2018-09-28 13:02 | NUR ---
Pt started on Heparin drip at 1000 units per hr = 20 ml/hr on Khan pump. Pt's actual kg wt max'd ACS dosing limit.
--- NOTE | 2018-09-28 13:15 | NUR ---
Call report to Tierra HYLTON at [facility] for Rm [id number].
[2018-09-28] MEDS ORDERED: D3 PO (13:29)
--- NOTE | 2018-09-28 13:32 | NUR ---
Dispatch called for [facility] for [facility] [employer] dispatch to [facility].
--- NOTE | 2018-09-28 13:50 | NUR ---
EMS EMT left for add'l cot battery.
[2018-09-28 14:00] VITALS: BP 120/61
--- NOTE | 2018-09-28 14:00 | NUR ---
Pt departed at this time for [facility] per [facility] report to Camila FITZGERALD. Pt has Heparin drip infusing per Khan pump along with NS bolus bag #2. Patient remains pain free. Monitor is noted to have occas PAC and PVC's not noted previously. VSS.
== END 2018-09-28 14:00 | disposition short-term general hospital (02) ==
LOC: EDUNIT# 10:56 → ER FS 10:57
DX: I21.4 Non-ST elevation (NSTEMI) myocardial infarction (principal); R55 Syncope and collapse; R74.8 Abnormal levels of other serum enzymes; R00.1 Bradycardia, unspecified; I10 Essential (primary) hypertension; E78.00 Pure hypercholesterolemia, unspecified; Z88.8 Allergy status to other drugs, medicaments and biological substances; Z88.5 Allergy status to narcotic agent; Z79.82 Long term (current) use of aspirin; Z95.5 Presence of coronary angioplasty implant and graft
CPT/HCPCS: 36415; 71275; 80053; 83735; 83880; 84484; 85025; 85610; 85730; 93005; 96361; 96365; 96375; 99291; 99292

== ENCOUNTER 2019-03-17 00:49 | Emergency (ER) | payer MEDICARE, OTHER ==
[~2019-03-17] VITALS: Ht 180 cm; Wt 107.0 kg
[~2019-03-17 00:49] MED LIST: AMLO10TA7 PO; ASPI-983 PO; ATEN50TA PO; BENA40TA5 PO; D3 PO; FINA5TAB6 PO; FLAX SEED; Fish Oil; HYDR12.5 PO; MAGN250T13 PO; MELO15TA39 PO; POTA99TA21 PO; ROSU20TA32 PO; TAMSULOSIN PO; VITA100033 PO
[2019-03-17] MEDS ORDERED: ASPIRIN 81 MG CHEW (CHILDREN'S ASA) PO STA (01:11)
[2019-03-17] MEDS ORDERED: NITROGLYCERIN 2% OINT 1 GM UNIT DOSE PACKET TOP STA (01:11)
[2019-03-17 01:15] LABS: BASOPHILS # (AUTO) 0.1 10^3/uL (0.0-0.1); BASOPHILS % (AUTO) 1 % (0-10); EOSINOPHILS # (AUTO) 0.3 10^3/uL (0.0-0.3); EOSINOPHILS % (AUTO) 4 % (0-10); HEMATOCRIT 40 % (40-54); HEMOGLOBIN 13.4 G/DL (13.3-17.7); LYMPHOCYTES # (AUTO) 1.2 X 10^3 (1.0-4.0); LYMPHOCYTES % (AUTO) 14 % (12-44); MEAN CORPUSCULAR HEMOGLOBIN 32 PG (25-34); MEAN CORPUSCULAR HGB CONC 34 G/DL (32-36); MEAN CORPUSCULAR VOLUME 94 FL (80-99); MEAN PLATELET VOLUME 9.8 FL (7.4-10.4); MONOCYTES # (AUTO) 0.8 X 10^3 (0.0-1.0); MONOCYTES % (AUTO) 10 % (0-12); NEUTROPHILS # (AUTO) 5.9 X 10^3 (1.8-7.8); NEUTROPHILS % (AUTO) 71 % (42-75); PLATELET COUNT 261 10^3/uL (130-400); RED CELL DISTRIBUTION WIDTH 13.2 % (10.0-14.5); WHITE BLOOD COUNT 8.2 10^3/uL (4.3-11.0)
[2019-03-17] MEDS ORDERED: ONDANSETRON 4 MG/2 ML (SDV) Z0FRAN IVP STA (01:15)
[2019-03-17] MEDS ORDERED: PANTOPRAZOLE 40 MG (PROTONIX) VIAL IV STA (01:15)
--- NOTE | 2019-03-17 01:22 | ED Chest Pain ---
General Chief Complaint: Chest Pain Stated Complaint: CHEST PAIN Source: patient, spouse History of Present Illness Date Seen by Provider: Mar 17, 2019 Time Seen by Provider: 00:49 Initial Comments 68 yo M presenting with complaints of chest pain. He states earlier in the evening he had pains in the left side and now he has had pain for the last few hours in the middle of his chest. He has nausea with this and almost threw up on way here. He had taken sublingual nitroglycerin and it helped his pain. He currently has pain 5/10. He states it feels somewhat like when he had his stents before but then he had pain going down his arm too. He has had no diaphoresis. His town clerk is Dr. Kapadia at [facility] in . He had a heart attack in September and was transferred to [facility] where he had a stent placed. Then in October he was in with his and had another episode of pain and went to [id number] Kapadia had to put another stent inside the first stent. He has been doing well since then but tonight had this pain start up again for him. He waited several hours but finally came to the ED to be evaluated. The Ntg at home helped his pain. He had a baby aspirin at home earlier with his regular scheduled m edicine but did not take any additional aspirin with the chest pain. His reports they had a busy afternoon and he did fine being active all day. Allergies and Home Medications Allergies Coded Allergies: simvastatin (Verified Allergy, Unknown, 09/25/18) acetaminophen (Unverified Adverse Reaction, Unknown, 09/28/18) propoxyphene (Unverified Adverse Reaction, Unknown, 09/28/18) Home Medications Amlodipine Besylate 10 Mg Tablet, 10 MG PO DAILY, (Reported) Aspirin 81 Mg Tablet.dr, 81 MG PO DAILY, (Reported) Atenolol 50 Mg Tablet, 50 MG PO DAILY, (Reported) Benazepril HCl 40 Mg Tab, 40 MG PO DAILY, (Reported) Finasteride 5 Mg Tablet, 5 MG PO DAILY, (Reported) Hydrochlorothiazide 12.5 Mg Capsule, 12.5 MG PO DAILY, (Reported) Magnesium Oxide 250 Mg Tablet, 250 MG PO DAILY, (Reported) Meloxicam 15 Mg Tablet, 15 MG PO DAILY, (Reported) Potassium Gluconate 99 Mg Tablet, 99 MG PO DAILY, (Reported) Rosuvastatin Calcium 20 Mg Tablet, 20 MG PO HS, (Reported) [D3] , 1,000 PO DAILY, (Reported) [Tamsulosin] 0.4 , 0.4 MG PO DAILY, (Reported) Patient Home Medication List Home Medication List Reviewed: Yes Review of Systems Review of Systems Constitutional: No chills, No fever EENTM: Other (very hard of hearing) Respiratory: Cough (intermittent), Shortness of Air Cardiovascular: See HPI, Chest Pain; Denies Lightheadedness, Denies Palpitations Gastrointestinal: Nausea; Denies Vomiting Genitourinary: No Symptoms Reported Musculoskeletal: no symptoms reported Skin: no symptoms reported Psychiatric/Neurological: No Symptoms Reported Past Lxxmhmg-Tuhdgr-Tsdolb Hx Past Med/Social Hx: Reviewed Nursing Past Med/Soc Hx Patient Social History Alcohol Use: Denies Use Recreational Drug Use: No Smoking Status: Never a Smoker 2nd Hand Smoke Exposure: No Recent Foreign Travel: No Contact w/Someone Who Travel: No Recent Hopitalizations: No Physical Abuse: No Sexual Abuse: No Seasonal Allergies Seasonal Allergies: No Past Medical History Surgeries: Yes Coronary Stent Respiratory: No Cardiac: Yes Coronary Artery Disease, High Cholesterol, Hypertension Neurological: No Genitourinary: No Gastrointestinal: No Musculoskeletal: No Endocrine: No HEENT: No Cancer: No Psychosocial: No Integumentary: No Blood Disorders: No Physical Exam Vital Signs Vital Signs - First Documented 03/17/19 03/17/19 00:52 02:09 Temp 37.1 Pulse 73 Resp 20 B/P (MAP) 111/74 (86) Pulse Ox 96 O2 Delivery Room Air O2 Flow Rate 2.00 FiO2 96 Capillary Refill : Height, Weight, BMI Height: 5'11.00" Weight: 257lbs. oz. 116.746785ta; BMI Method:Actual General Appearance: No Apparent Distress, WD/WN HEENT: PERRL/EOMI, Pharynx Normal Neck: Supple Respiratory: Chest Non Tender, Lungs Clear, Normal Breath Sounds Cardiovascular: Regular Rate, Rhythm, Normal Peripheral Pulses Gastrointestinal: No Pulsatile Mass, Non Tender, Soft Extremity: Normal Capillary Refill, Non Tender, No Pedal Edema Neurologic/Psychiatric: Alert, Oriented x3, No Motor/Sensory Deficits Skin: Normal Color, Warm/Dry Progress/Results/Core Measures Results/Orders Lab Results Laboratory Tests Test 03/17/19 01:05 03/17/19 02:56 Range/Units White Blood Count 8.2 4.3-11.0 10^3/uL Red Blood Count 4.24 L 4.35-5.85 10^6/uL Hemoglobin 13.4 13.3-17.7 G/DL Hematocrit 40 40-54 % Mean Corpuscular Volume 94 80-99 FL Mean Corpuscular Hemoglobin 32 25-34 PG Mean Corpuscular Hemoglobin Concent 34 32-36 G/DL Red Cell Distribution Width 13.2 10.0-14.5 % Platelet Count 261 130-400 10^3/uL Mean Platelet Volume 9.8 7.4-10.4 FL Neutrophils (%) (Auto) 71 42-75 % Lymphocytes (%) (Auto) 14 12-44 % Monocytes (%) (Auto) 10 0-12 % Eosinophils (%) (Auto) 4 0-10 % Basophils (%) (Auto) 1 0-10 % Neutrophils # (Auto) 5.9 1.8-7.8 X 10^3 Lymphocytes # (Auto) 1.2 1.0-4.0 X 10^3 Monocytes # (Auto) 0.8 0.0-1.0 X 10^3 Eosinophils # (Auto) 0.3 0.0-0.3 10^3/uL Basophils # (Auto) 0.1 0.0-0.1 10^3/uL Prothrombin Time 13.8 12.2-14.7 SEC INR Comment 1.0 0.8-1.4 Activated Partial Thromboplast Time 26 24-35 SEC Sodium Level 143 135-145 MMOL/L Potassium Level 3.2 L 3.6-5.0 MMOL/L Chloride Level 105 98-107 MMOL/L Carbon Dioxide Level 25 21-32 MMOL/L Anion Gap 13 5-14 MMOL/L Blood Urea Nitrogen 15 7-18 MG/DL Creatinine 0.71 0.60-1.30 MG/DL Estimat Glomerular Filtration Rate > 60 BUN/Creatinine Ratio 21 Glucose Level 86 70-105 MG/DL Calcium Level 8.6 8.5-10.1 MG/DL Corrected Calcium 8.8 8.5-10.1 MG/DL Magnesium Level 2.1 1.6-2.4 MG/DL Total Bilirubin 0.3 0.1-1.0 MG/DL Aspartate Amino Transf (AST/SGOT) 11 5-34 U/L Alanine Aminotransferase (ALT/SGPT) 13 0-55 U/L Alkaline Phosphatase 79 40-136 U/L Troponin I < 0.30 < 0.30 <0.30 NG/ML Pro-B-Type Natriuretic Peptide 166.3 H <75.0 PG/ML Total Protein 6.7 6.4-8.2 GM/DL Albumin 3.7 3.2-4.5 GM/DL My Orders Orders - GERALDINE CASTILLO MD Cbc With Automated Diff (03/17/19 00:51) Magnesium (03/17/19 00:51) Chest 1 View Ap/Pa Only (03/17/19 00:51) Ekg Tracing (03/17/19 00:51) Comprehensive Metabolic Panel (03/17/19 00:51) Protime With Inr (03/17/19 00:51) Partial Thromboplastin Time (03/17/19 00:51) O2 (03/17/19 00:51) Monitor-Rhythm Ecg Trace Only (03/17/19 00:51) Ed Iv/Invasive Line Start (03/17/19 00:51) Troponin I Fs (03/17/19 00:51) Probnp Fs (03/17/19 00:51) Nitroglycerin Ointment (Nitrobid Ointme (03/17/19 01:11) Aspirin Chewable Tablet (Baby Aspirin Ch (03/17/19 01:11) Ondansetron Injection (Zofran Injectio (03/17/19 01:15) Pantoprazole Injection (Protonix Injecti (03/17/19 01:15) Morphine Injection (Morphine Injection (03/17/19 01:44) Ekg Tracing (03/17/19 01:45) Enoxaparin Injection (Lovenox Injection) (03/17/19 02:18) Troponin I Fs (03/17/19 02:50) Vital Signs/I&O 03/17/19 03/17/19 03/17/19 00:52 02:09 03:21 Temp 37.1 Pulse 73 60 Resp 20 18 B/P (MAP) 111/74 (86) 142/71 Pulse Ox 96 96 96 O2 Delivery Room Air Nasal Cannula Nasal Cannula O2 Flow Rate 2.00 2.00 FiO2 96 Progress Progress Note #1: Time: 01:08 Progress Note check labs and ECG with CXR. Since he has not taken additional aspirin will give 243 mg of aspirin here to add on to the 81 mg he already had with regular medicines at home. Try ntg paste 0.5 in since he had some improvement in pain with the NTG at home. He was having nausea as well so give Zofran and a dose of protonix. Progress Note #2: Time: 01:45 Progress Note Labs and cardiac enzymes are negative. He has improved pain to 1 or less in his chest with treatment. Repeat ECG now shows less artifact but still has T wave flattening in lateral leads, similar to initial ECG and Sep 2018 With his cardiac history and having pain that feels similar to when he had to figueroa ve stents I advised him and his that I would like to have him admitted for observation and serial enzyme testing. I offered that locally at [facility] but with his town clerk being at [facility] they debated it but decided to go to [facility]. That way if he had any change in his enzymes or needed intervention from cardiology than he will be where Dr. Kapadia practices and can see him if need be or at least have access to records from when he had stent and cath done. Added oxygen and 2 mg of Morphine to help the residual 1/10 chest pain. 0207 Page for the hospitalist placed through Bed Control at [facility]. Progress Note #3: Time: 02:[address] Davies, hospitalist from [facility], called and after reviewing the case with her she accepted him in transfer. Will order a repeat troponin at 3 am as well. Progress Note #4: Time: 03:32 Progress Note Repeat troponin is still <0.3. EMS here to take pt to [facility] Initial ECG Impression Date: Mar 17, 2019 Initial ECG Impression Time: 01:26 Initial ECG Rate: 68 Initial ECG Rhythm: Normal Sinus Initial ECG Comparisson: Unchanged Comment Normal sinus rhythm with heart rate is 68 bpm. OR interval 183 ms. QT interval 450 ms and QTc interval 479 ms. 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 These are all stable from his last electrocardiogram in September 2018. He has lateral T-wave flattening and some artifact in V5 EKG : EKG Time: 01:45 Rate: 61 Rhythm: Normal Sinus Comment Normal sinus rhythm with a heart rate 61 beats for minute. OR interval 190 ms. QT interval 468 ms and QTc interval 472 ms. He continues to have right bundle- branch block with a left anterior fascicular block. He also continues to have some T-wave flattening in the lateral leads. Diagnostic Imaging Diagonstic Imaging: Xray Plain Films/CT/US/NM/MRI: chest Comments No acute infiltrate. Appears similar to Sep 2018 film. Reviewed: Reviewed by Me Departure Impression Primary Impression: Chest pain Qualified Codes: R07.2 - Precordial pain Additional Impression: Coronary artery disease Qualified Codes: I25.119 - Atherosclerotic heart disease of [place] coronary artery with unspecified angina pectoris Disposition: XF SHT-TRM HOSP Condition: Improved Transfer Transfer Reason: Patient preference Time Spoke to Accepting Phy: 02:38 Transfer Progress Notes Discussed with Dr. Davies about the patient. Also reviewed the patient's preference to come there rather than go to a local hospital. His concern was that if he needed to have any cardiac intervention that he would rather be some place. Dr. Galvan was available or at least records from the most recent stent. He does understand that if everything looks fine cardiac testing heller he would not be discharged later today. Transfer Facility: [facility] Method of Transfer: EMS Departure-Patient Inst. Referrals: NO,LOCAL PHYSICIAN (PCP/Family) Primary Care Physician GERALDINE CASTILLO MD Mar 17, 2019 01:22
[2019-03-17 01:27] LABS: PROTHROMBIN TIME PATIENT 13.8 SEC (12.2-14.7)
[2019-03-17 01:35] LABS: ALANINE AMINOTRANSFERASE 13 U/L (0-55); ALBUMIN 3.7 GM/DL (3.2-4.5); ALKALINE PHOSPHATASE 79 U/L (40-136); BILIRUBIN,TOTAL 0.3 MG/DL (0.1-1.0); BUN/CREATININE RATIO 21; CALCIUM 8.6 MG/DL (8.5-10.1); CARBON DIOXIDE 25 MMOL/L (21-32); CHLORIDE 105 MMOL/L (98-107); CREATININE SERUM 0.71 MG/DL (0.60-1.30); GFR ESTIMATED > 60; GLUCOSE 86 MG/DL (70-105); MAGNESIUM 2.1 MG/DL (1.6-2.4); POTASSIUM 3.2 MMOL/L (3.6-5.0); SODIUM 143 MMOL/L (135-145); TOTAL PROTEIN 6.7 GM/DL (6.4-8.2)
[2019-03-17] MEDS ORDERED: morphine INJ 10 MG/ML 1ML (SYR OR VIAL) IVP STA (01:44)
[2019-03-17] MEDS ORDERED: ENOXAPARIN 100 MG/1 ML (LOVENOX) SYR SC STA (02:18)
[2019-03-17 03:21] VITALS: BP 142/71
--- NOTE | 2019-03-17 07:14 | Diagnostic Imaging Report ---
INDICATION: Chest pain. Single AP view of chest is obtained with comparison made to study of 09/25/2018. FINDINGS: Heart size and pulmonary vascularity are within normal limits. There is mild left basilar atelectasis and/or pneumonitis. No consolidation, pneumothorax or significant pleural fluid is seen. IMPRESSION: Mild left basilar atelectasis and/or pneumonitis. Dictated by: Dictated on workstation # [id number]
== END 2019-03-17 03:42 | disposition short-term general hospital (02) ==
LOC: EDUNIT# 00:49 → ER FS 00:52
DX: I25.10 Atherosclerotic heart disease of native coronary artery without angina pectoris (principal); I10 Essential (primary) hypertension; E78.00 Pure hypercholesterolemia, unspecified; Z88.8 Allergy status to other drugs, medicaments and biological substances; Z88.6 Allergy status to analgesic agent; Z79.82 Long term (current) use of aspirin; Z95.5 Presence of coronary angioplasty implant and graft
CPT/HCPCS: 36415; 71045; 80053; 83735; 83880; 84484; 85025; 85610; 85730; 93005; 93041; 96372; 96374; 96375

== ENCOUNTER 2021-06-29 18:13 | Emergency (ER) | payer MEDICARE, OTHER ==
[~2021-06-29] VITALS: Ht 180 cm; Wt 115.0 kg
[~2021-06-29 18:13] MED LIST changes: +AMLO-251 PO; -AMLO10TA7 PO; +ASPI-1238 PO; -ASPI-983 PO; -BENA40TA5 PO; +BENA40TA84 PO; -POTA99TA21 PO; +POTA99TA26 PO
[2021-06-29] MEDS ORDERED: ASPIRIN 81 MG CHEW (CHILDREN'S ASA) PO ONE (18:15)
[2021-06-29 18:25] VITALS: BP 188/84
--- NOTE | 2021-06-29 18:34 | Diagnostic Imaging Report ---
INDICATION: Chest pain. TECHNIQUE: Single view chest 6:23 PM. CORRELATION STUDY: 07/18/2020. FINDINGS: Heart size enlarged, mediastinum prominent. Vasculature however within normal limits. The lungs are clear with no consolidating infiltrate. There is no significant effusion or pneumothorax. 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 IMPRESSION: Cardiac enlargement without failure. Dictated by: Dictated on workstation # [id number]
--- NOTE | 2021-06-29 18:37 | ED Chest Pain ---
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 He took a single ntg at home which brought his sharp chest pain from 6 down to 1. He had some nausea and shortness of breath. He states this feels different than when he had stents placed in the past. He follows with Dr. Galvan for Cardiology in through [facility]. 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 (took baby aspirin /) NTG SL TENNIS PROFESSIONAL: Yes Associated Symptoms: No abdominal pain, No back pain, No diaphoresis, No dizziness, No edema, No fatigue, No fever/chills, No headache, No heartburn, No rash; shortness of breath; No swelling/lump in chest, No syncope, No weakness Allergies and Home Medications Allergies Coded Allergies: simvastatin (Verified Allergy, Unknown, 09/25/18) acetaminophen (Unverified Adverse Reaction, Unknown, 09/28/18) propoxyphene (Unverified Adverse Reaction, Unknown, 09/28/18) Patient Home Medication List Home Medication List Reviewed: Yes Amlodipine Besylate (Amlodipine Besylate) 10 Mg Tablet, 10 MG PO DAILY, (Reported) Entered as Reported by: OSMAR PEARL on 09/28/18 1231 Aspirin (Aspirin EC) 81 Mg Tablet.dr, 81 MG PO DAILY, (Reported) Entered as Reported by: OSMAR PEARL on 09/28/18 1231 Atenolol (Atenolol) 50 Mg Tablet, 50 MG PO DAILY, (Reported) Entered as Reported by: OSMAR PEARL on 09/28/18 1231 Benazepril HCl (Benazepril HCl) 40 Mg Tab, 40 MG PO DAILY, (Reported) Entered as Reported by: OSMAR PEARL on 09/28/18 1231 Finasteride (Finasteride) 5 Mg Tablet, 5 MG PO DAILY, (Reported) Entered as Reported by: OSMAR PEARL on 09/28/18 1231 Hydrochlorothiazide (Hydrochlorothiazide) 12.5 Mg Capsule, 12.5 MG PO DAILY, (Reported) Entered as Reported by: OSMAR PEARL on 09/28/18 123 Magnesium Oxide (Magnesium) 250 Mg Tablet, 250 MG PO DAILY, (Reported) Entered as Reported by: OSMAR PEARL on 09/28/18 123 Meloxicam (Meloxicam) 15 Mg Tablet, 15 MG PO DAILY, (Reported) Entered as Reported by: OSMAR PEARL on 09/28/18 123 Potassium Gluconate (Potassium) 99 Mg Tablet, 99 MG PO DAILY, (Reported) Entered as Reported by: OSMAR PEARL on 09/28/18 123 Rosuvastatin Calcium (Rosuvastatin Calcium) 20 Mg Tablet, 20 MG PO HS, (Reported) Entered as Reported by: OSMAR PEARL on 09/28/18 1231 [D3] , 1,000 PO DAILY, (Reported) Entered as Reported by: OSMAR PEARL on 09/28/18 1329 [Fish Oil] , (Reported) Entered as Reported by: OSMAR PEARL on 09/28/18 123 [Flax seed] , (Reported) Entered as Reported by: OSMAR PEARL on 09/28/18 123 [Tamsulosin] 0.4 , 0.4 MG PO DAILY, (Reported) Entered as Reported by: OSMAR PEARL on 09/28/18 123 Review of Systems Review of Systems Constitutional: No chills, No fever EENTM: No Symptoms Reported Respiratory: See HPI Cardiovascular: See HPI Gastrointestinal: See HPI Genitourinary: No Symptoms Reported Musculoskeletal: no symptoms reported Skin: no symptoms reported Psychiatric/Neurological: No Symptoms Reported Past Xfserod-Vbeapi-Gzwhnk Hx Patient Social History Tobacco Use?: No Use of E-Cig and/or Vaping dev: No Substance use?: No Alcohol Use?: Yes Alcohol Frequency: Once in a while Seasonal Allergies Seasonal Allergies: No Past Medical History Surgery/Hospitalization HX: Left knee surgery May 2021 Surgeries: Yes Coronary Stent Respiratory: No Cardiac: Yes Coronary Artery Disease, Heart Attack, High Cholesterol, Hypertension Neurological: No Genitourinary: No Gastrointestinal: No Musculoskeletal: No Endocrine: No HEENT: No Cancer: No Psychosocial: No Integumentary: No Blood Disorders: No Physical Exam Vital Signs Vital Signs - First Documented 06/29/21 18:25 Temp 36.9 Pulse 89 Resp 17 B/P (MAP) 188/84 (118) Pulse Ox 95 O2 Delivery Room Air Capillary Refill : Height, Weight, BMI Height: 5'11.00" Weight: 257lbs. oz. 116.424502hg; 32.00 BMI Method:Actual General Appearance: No Apparent Distress, Obese HEENT: PERRL/EOMI, Pharynx Normal Neck: Full Range of Motion, Normal Inspection, Non Tender, Supple Respiratory: Chest Non Tender, Lungs Clear, Normal Breath Sounds, No Accessory Muscle Use, No Respiratory Distress Cardiovascular: Regular Rate, Rhythm, Normal Peripheral Pulses Gastrointestinal: Normal Bowel Sounds, No Pulsatile Mass, Non Tender, Soft Extremity: Normal Capillary Refill, Normal Inspection, Pedal Edema (BLE edema) Neurologic/Psychiatric: Alert, Oriented x3, No Motor/Sensory Deficits, resident care spec II- XII Norm as Tested Skin: Normal Color, Warm/Dry Progress/Results/Core Measures Results/Orders Lab Results Laboratory Tests Test 06/29/21 18:28 06/29/21 20:30 Range/Units White Blood Count 11.0 4.3-11.0 10^3/uL Red Blood Count 4.08 L 4.30-5.52 10^6/uL Hemoglobin 13.0 L 13.3-17.7 g/dL Hematocrit 38 L 40-54 % Mean Corpuscular Volume 93 80-99 fL Mean Corpuscular Hemoglobin 32 25-34 pg Mean Corpuscular Hemoglobin Concent 34 32-36 g/dL Red Cell Distribution Width 13.1 10.0-14.5 % Platelet Count 330 130-400 10^3/uL Mean Platelet Volume 10.0 9.0-12.2 fL Immature Granulocyte % (Auto) 0 % Neutrophils (%) (Auto) 79 H 42-75 % Lymphocytes (%) (Auto) 10 L 12-44 % Monocytes (%) (Auto) 8 0-12 % Eosinophils (%) (Auto) 3 0-10 % Basophils (%) (Auto) 1 0-10 % Neutrophils # (Auto) 8.6 H 1.8-7.8 10^3/uL Lymphocytes # (Auto) 1.1 1.0-4.0 10^3/uL Monocytes # (Auto) 0.9 0.0-1.0 10^3/uL Eosinophils # (Auto) 0.3 0.0-0.3 10^3/uL Basophils # (Auto) 0.1 0.0-0.1 10^3/uL Immature Granulocyte # (Auto) 0.0 0.0-0.1 10^3/uL Prothrombin Time 13.6 12.2-14.7 SEC INR Comment 1.0 0.8-1.4 Activated Partial Thromboplast Time 28 24-35 SEC D-Dimer 2.52 H 0.00-0.49 UG/ML Sodium Level 141 135-145 MMOL/L Potassium Level 3.2 L 3.6-5.0 MMOL/L Chloride Level 102 98-107 MMOL/L Carbon Dioxide Level 25 21-32 MMOL/L Anion Gap 14 5-14 MMOL/L Blood Urea Nitrogen 15 7-18 MG/DL Creatinine 0.66 0.60-1.30 MG/DL Estimat Glomerular Filtration Rate 99 BUN/Creatinine Ratio 23 Glucose Level 117 H 70-105 MG/DL Calcium Level 9.0 8.5-10.1 MG/DL Corrected Calcium 9.1 8.5-10.1 MG/DL Magnesium Level 2.1 1.6-2.4 MG/DL Total Bilirubin 0.2 0.1-1.0 MG/DL Aspartate Amino Transf (AST/SGOT) 11 5-34 U/L Alanine Aminotransferase (ALT/SGPT) 8 0-55 U/L Alkaline Phosphatase 82 40-136 U/L Myoglobin < 21.0 10.0-92.0 NG/ML Troponin I < 0.30 < 0.30 <0.30 NG/ML Pro-B-Type Natriuretic Peptide 534.3 H <75.0 PG/ML Total Protein 7.1 6.4-8.2 GM/DL Albumin 3.9 3.2-4.5 GM/DL Lipase 18 8-78 U/L My Orders Orders - GERALDINE CASTILLO MD Ekg Tracing (06/29/21 18:14) Cbc With Automated Diff (06/29/21 18:15) Magnesium (06/29/21 18:15) Chest 1 View Ap/Pa Only (06/29/21 18:15) Comprehensive Metabolic Panel (06/29/21 18:15) Myoglobin Serum (06/29/21 18:15) Protime With Inr (06/29/21 18:15) Partial Thromboplastin Time (06/29/21 18:15) O2 (06/29/21 18:15) Monitor-Rhythm Ecg Trace Only (06/29/21 18:15) Aspirin Chewable Tablet (Baby Aspirin Ch (06/29/21 18:15) Ed Iv/Invasive Line Start (06/29/21 18:15) Lipase (06/29/21 18:15) Troponin I Fs (06/29/21 18:15) Probnp Fs (06/29/21 18:15) Fibrin Degradation Products (06/29/21 18:49) Fentanyl Inj (Sublimaze Injection) (06/29/21 20:22) Metoprolol Tartrate Injection (Lopressor (06/29/21 20:22) Troponin I Fs (06/29/21 20:22) Ct Angio Chest W (06/29/21 20:46) Iohexol Injection (Omnipaque 350 Mg/Ml 1 (06/29/21 21:00) Received Contrast (Hold Metformin- Contr (06/29/21 21:00) Sodium Chloride Flush (Catheter Flush Sy (06/29/21 21:00) Ns (Ivpb) (Sodium Chloride 0.9% Ivpb Bag (06/29/21 21:00) Metoprolol Succinate (Xl) Tab (Toprol Xl (06/29/21 22:25) Medications Given in ED Current Medications Medications Dose Ordered Sig/[place] Route Start Time Stop Time Status Last Admin Dose Admin Sodium Chloride 10 ml NEEDED PRN IV 06/29/21 21:00 06/29/21 21:21 10 ML Sodium Chloride 100 ml ONCE ONCE IV 06/29/21 21:00 06/29/21 21:22 DC 06/29/21 21:21 80 ML Vital Signs/I&O 06/29/21 06/29/21 06/29/21 06/29/21 18:25 18:54 19:45 20:24 Temp 36.9 Pulse 89 82 82 77 Resp 17 18 18 18 B/P (MAP) 188/84 (118) 168/89 188/96 180/72 Pulse Ox 95 95 94 95 O2 Delivery Room Air Room Air Room Air Room Air 06/29/21 06/29/21 21:28 22:14 Pulse 73 72 Resp 18 20 B/P (MAP) 170/78 181/81 Pulse Ox 95 93 O2 Delivery Room Air Room Air Progress Progress Note #1: Progress Note Check labs, ECG, CXR. Order 324 mg of aspirin. Check D Dimer since he has had recent knee surgery. Differential diagnosis myocardial infarction, pulmonary embolus, chest wall pain, esophageal spasm Progress Note #2: Progress Note Initial labs are negative for acute coronary syndrome or acute AK. His chest x- ray does not show any acute process. His pain continues to be improved. He has had some elevated blood pressure readings. He denies having a headache, blurred vision, nausea, new chest pain, shortness of breath. He has not had a pain pill since first thing this morning before going to physical therapy. His physical therapy was for his left shoulder as well as his knees. Especially with having physical therapy on the shoulder and the knee the chest pain could be related to musculoskeletal pain. Will give a dose of pain medicine as well as a dose of metoprolol for his elevated blood pressure. Repeat the troponin and await on the D-dimer to see if it was elevated. Progress Note #3: Progress Note The D-dimer was elevated to 2.[address] angiogram of the chest was ordered to evaluate for possible pulmonary embolism. Blood pressure continue to fluctuate between 160 and 180. Progress Note #4: Progress Note Repeat troponin is still less than 0.3. He has had no new pain in his chest. His CT scan of the chest showed no acute pulmonary embolism. He had some chronic changes seen on prior imaging that appeared stable. Counseled to take an extra dose of blood pressure medicine tonight so given 100 mg of metoprolol. 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 Return if having worsening or new symptoms. Take his regular medicines for blood pressure in the morning Initial ECG Impression Date: June 29, 2021 Initial ECG Impression Time: 18:19 Initial ECG Rate: 87 Initial ECG Rhythm: Normal Sinus Initial ECG Comparisson: Unchanged Comment Sinus Rhythm with rate 87 bpm. MD interval of 161 ms. Intraventricular conduction delay. QT interval of 424 ms with QTc interval of 468 ms. Similar to prior tracings in the system. No acute ST elevation. Diagnostic Imaging Diagonstic Imaging: Xray Plain Films/CT/US/NM/MRI: chest Comments [facility], [place] NAME: KIELY VERA [facility] REC#: [id number] PT STATUS: REG ER : 1950 PHYSICIAN: GERALDINE CASTILLO MD ADMIT DATE: 06/29/21/ER FS Signed Date of Exam:06/29/21 CHEST 1 VIEW AP/PA ONLY INDICATION: Chest pain. TECHNIQUE: Single view chest 6:23 PM. CORRELATION STUDY: 07/18/2020. FINDINGS: Heart size enlarged, mediastinum prominent. Vasculature however within normal limits. The lungs are clear with no consolidating infiltrate. There is no significant effusion or pneumothorax. 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 IMPRESSION: Cardiac enlargement without failure. Dictated by: Dictated on workstation # [id number] Dict: 06/29/211829 Trans: 06/29/211938 [facility] [id number] Interpreted by: YAMINI PETE DO Electronically signed by: YAMINI PETE DO 06/29/211938 Reviewed: Reviewed by Nh Diagonstic Imaging: CT (Angiogram) Plain Films/CT/US/NM/MRI: chest Comments [facility], [place] NAME: KILEY VERA [facility] REC#: [id number] PT STATUS: REG ER : 1950 PHYSICIAN: GERALDINE CASTILLO MD ADMIT DATE: 06/29/21/ER FS Signed Date of Exam:06/29/21 CT ANGIO CHEST W PROCEDURE: CT angiography of the chest with contrast. TECHNIQUE: Multiple contiguous axial images were obtained through the chest after uneventful bolus administration of intravenous contrast. 3D reconstructed CTA MIP acquisitions were also performed. Auto Exposure Controls were utilized during the CT exam to meet ALARA standards for radiation dose reduction. INDICATION: 71-year-old male, sharp chest pain, elevated D-dimer. Recent knee replacement. CORRELATION: CTA chest 09/28/2018. FINDINGS: There is prominent metallic artifact from left shoulder arthroplasty, new since prior. Soft tissue mass, likely enlarged right thyroid lobe, into the retroclavicular and superior retrosternal region. Just inferior to this, and maybe contiguous with this, is an additional lobulated soft tissue mass in the anterior superior mediastinum with small amount of calcification. 3.7 x 3.4 cm (previously measured 3.7 x 2.6 cm, relatively stable. Heart size is enlarged but without disproportionate right heart strain. No pericardial effusion. Thoracic aorta with mild wall calcification. 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 A few shotty mediastinal lymph nodes. Small esophageal hernia. Main pulmonary artery demonstrates no filling defect to suggest pulmonary embolism. There is suboptimal contrast bolus timing. This does limit assessment for small or more peripheral emboli which could easily go undetected but is not definitively suggested. The lung louie are clear of infiltrate. Very small 3 mm nodule of anterior right upper lobe (image 62) not definitively present on prior. No pleural effusion. The visualized portions of the upper abdomen are unremarkable. 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 Mildly advanced degenerative changes of the thoracic spine with prominent bridging osteophytes. Old left clavicle fracture deformity. IMPRESSION: 1. No CTA evidence for pulmonary embolism. However, small peripheral emboli could easily go undetected on this study owing to contrast bolus timing. 2. Enlarged right thyroid lobe again demonstrated. Superior mediastinal mass may reflect retrosternal extension of the thyroid mass but overall appears generally stable favoring benign process. 3. Cardiac enlargement with scattered coronary artery calcification. Dictated by: Dictated on workstation # [id number] Dict: 06/29/212123 Trans: 06/29/212300 [facility] [id number] Interpreted by: YAMINI PETE DO Electronically signed by: YAMINI PETE DO 06/29/212300 Reviewed: Reviewed by Me Departure Impression Primary Impression: Atypical chest pain Additional Impression: Elevated blood pressure reading with diagnosis of hypertension Disposition: HOME, SELF-CARE Condition: Stable Departure-Patient Inst. Decision time for Depature: 22:24 Referrals: CAM ROSAS MD (PCP/Family) Primary Care Physician Patient Instructions: High Blood Pressure ED, Chest Pain, Adult ED Add. Discharge Instructions: Take your medicine as prescribed at home Check with your machining associate at least by phone tomorrow about your symptoms. You may need to have your blood pressure medicines adjusted if your pressure continues to run high. You were given an extra dose of your metoprolol tonight but take your regular blood pressure medicines in the morning as usual. All discharge instructions reviewed with patient and/or family. Voiced unders tanding. GERALDINE CASTILLO MD June 29, 2021 18:37
[2021-06-29 18:53] LABS: BASOPHILS # (AUTO) 0.1 10^3/uL (0.0-0.1); BASOPHILS % (AUTO) 1 % (0-10); EOSINOPHILS # (AUTO) 0.3 10^3/uL (0.0-0.3); EOSINOPHILS % (AUTO) 3 % (0-10); HEMATOCRIT 38 % (40-54); LYMPHOCYTES # (AUTO) 1.1 10^3/uL (1.0-4.0); LYMPHOCYTES % (AUTO) 10 % (12-44); MEAN CORPUSCULAR HEMOGLOBIN 32 pg (25-34); MEAN CORPUSCULAR HGB CONC 34 g/dL (32-36); MEAN CORPUSCULAR VOLUME 93 fL (80-99); MONOCYTES # (AUTO) 0.9 10^3/uL (0.0-1.0); MONOCYTES % (AUTO) 8 % (0-12); NEUTROPHILS # (AUTO) 8.6 10^3/uL (1.8-7.8); NEUTROPHILS % (AUTO) 79 % (42-75); PLATELET COUNT 330 10^3/uL (130-400)
[2021-06-29 19:04] LABS: PROTHROMBIN TIME PATIENT 13.6 SEC (12.2-14.7)
[2021-06-29 19:38] LABS: POTASSIUM 3.2 MMOL/L (3.6-5.0); SODIUM 141 MMOL/L (135-145)
[2021-06-29 19:39] LABS: ALANINE AMINOTRANSFERASE 8 U/L (0-55); ALKALINE PHOSPHATASE 82 U/L (40-136); BILIRUBIN,TOTAL 0.2 MG/DL (0.1-1.0); BUN/CREATININE RATIO 23; CARBON DIOXIDE 25 MMOL/L (21-32); CHLORIDE 102 MMOL/L (98-107); CREATININE SERUM 0.66 MG/DL (0.60-1.30); GFR ESTIMATED 99; GLUCOSE 117 MG/DL (70-105); MAGNESIUM 2.1 MG/DL (1.6-2.4)
[2021-06-29 19:40] LABS: ALBUMIN 3.9 GM/DL (3.2-4.5); LIPASE 18 U/L (8-78); TOTAL PROTEIN 7.1 GM/DL (6.4-8.2)
[2021-06-29] MEDS ORDERED: fentaNYL INJ 100 MCG/2 ML AMP IVP STA (20:22)
[2021-06-29] MEDS ORDERED: meTOprolol 5 MG/5 ML (LOPRESSOR) VIAL IV STA (20:22)
[2021-06-29] MEDS ORDERED: IOHEXOL 350 MG/ML 100 ML (OMNIPAQUE 350) VIAL IV ONE (21:00)
[2021-06-29] MEDS ORDERED: NS 100 ML (IVPB) BAG IV ONE (21:00)
[2021-06-29] MEDS ORDERED: CATHETER FLUSH 10 ML SYR IV PRN (21:00)
[2021-06-29] MEDS ORDERED: HOLD METFORMIN - RECEIVED CONTRAST 20 ML VIAL IV SCH (21:00)
--- NOTE | 2021-06-29 21:48 | Diagnostic Imaging Report ---
PROCEDURE: CT angiography of the chest with contrast. TECHNIQUE: Multiple contiguous axial images were obtained through the chest after uneventful bolus administration of intravenous contrast. 3D reconstructed CTA MIP acquisitions were also performed. Auto Exposure Controls were utilized during the CT exam to meet ALARA standards for radiation dose reduction. INDICATION: 71-year-old male, sharp chest pain, elevated D-dimer. Recent knee replacement. CORRELATION: CTA chest 09/28/2018. FINDINGS: There is prominent metallic artifact from left shoulder arthroplasty, new since prior. Soft tissue mass, likely enlarged right thyroid lobe, into the retroclavicular and superior retrosternal region. Just inferior to this, and maybe contiguous with this, is an additional lobulated soft tissue mass in the anterior superior mediastinum with small amount of calcification. 3.7 x 3.4 cm (previously measured 3.7 x 2.6 cm, relatively stable. Heart size is enlarged but without disproportionate right heart strain. No pericardial effusion. Thoracic aorta with mild wall calcification. 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 A few shotty mediastinal lymph nodes. Small esophageal hernia. Main pulmonary artery demonstrates no filling defect to suggest pulmonary embolism. There is suboptimal contrast bolus timing. This does limit assessment for small or more peripheral emboli which could easily go undetected but is not definitively suggested. The lung louie are clear of infiltrate. Very small 3 mm nodule of anterior right upper lobe (image 62) not definitively present on prior. No pleural effusion. The visualized portions of the upper abdomen are unremarkable. 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 Mildly advanced degenerative changes of the thoracic spine with prominent bridging osteophytes. Old left clavicle fracture deformity. IMPRESSION: 1. No CTA evidence for pulmonary embolism. However, small peripheral emboli could easily go undetected on this study owing to contrast bolus timing. 2. Enlarged right thyroid lobe again demonstrated. Superior mediastinal mass may reflect retrosternal extension of the thyroid mass but overall appears generally stable favoring benign process. 3. Cardiac enlargement with scattered coronary artery calcification. Dictated by: Dictated on workstation # [id number]
[2021-06-29] MEDS ORDERED: meTOproloL SUCCINATE 50 MG (TOPROL XL) TAB PO STA (22:25)
== END 2021-06-29 22:36 | disposition home or self-care (01) ==
LOC: EDUNIT# 18:13 → ER FS 18:14
DX: R07.89 Other chest pain (principal); I10 Essential (primary) hypertension
CPT/HCPCS: 36415; 71045; 71275; 80053; 83690; 83735; 83874; 83880; 84484; 85025; 85379; 85610; 85730; 93005; 96374; 96375; Q9967

== ENCOUNTER 2022-05-24 14:04 | Emergency (ER) | payer MEDICARE, OTHER ==
[~2022-05-24] VITALS: Ht 177 cm; Wt 117.0 kg
[2022-05-24] MEDS ORDERED: ASPIRIN 81 MG CHEW (CHILDREN'S ASA) PO ONE (14:30)
[2022-05-24] MEDS: NITROGLYCERIN 0.4 MG SL TABS BTL 25'S SL PRN ×3 (14:33→15:33)
[2022-05-24 14:41] LABS: BASOPHILS # (AUTO) 0.1 10^3/uL (0.0-0.1); BASOPHILS % (AUTO) 1 % (0-10); EOSINOPHILS # (AUTO) 0.3 10^3/uL (0.0-0.3); EOSINOPHILS % (AUTO) 4 % (0-10); HEMATOCRIT 42 % (40-54); HEMOGLOBIN 14.9 g/dL (13.3-17.7); LYMPHOCYTES # (AUTO) 1.2 10^3/uL (1.0-4.0); LYMPHOCYTES % (AUTO) 16 % (12-44); MEAN CORPUSCULAR HEMOGLOBIN 33 pg (25-34); MEAN CORPUSCULAR HGB CONC 35 g/dL (32-36); MEAN CORPUSCULAR VOLUME 93 fL (80-99); MONOCYTES # (AUTO) 0.7 10^3/uL (0.0-1.0); MONOCYTES % (AUTO) 10 % (0-12); NEUTROPHILS # (AUTO) 4.9 10^3/uL (1.8-7.8); NEUTROPHILS % (AUTO) 69 % (42-75); PLATELET COUNT 232 10^3/uL (130-400); WHITE BLOOD COUNT 7.1 10^3/uL (4.3-11.0)
--- NOTE | 2022-05-24 14:49 | Diagnostic Imaging Report ---
INDICATION: CAD, Left arm pain. TECHNIQUE: Single view chest 2:20 PM. CORRELATION STUDY: 06/29/2021 FINDINGS: Stable enlargement and prominence of the heart and mediastinum. Vasculature overall within normal limits. The lungs are clear with no consolidating infiltrate. There is no significant effusion or pneumothorax. Partial visualization left humeral prosthesis. IMPRESSION: 1. Stable cardiac enlargement with prominent mediastinum. No overt failure. Dictated by: Dictated on workstation # [id number]
[2022-05-24 14:56] LABS: INR 0.9 (0.8-1.4)
[2022-05-24 15:06] LABS: BILIRUBIN,TOTAL 0.4 MG/DL (0.1-1.0); CALCIUM 8.8 MG/DL (8.5-10.1); CREATININE SERUM 0.83 MG/DL (0.60-1.30); MAGNESIUM 2.1 MG/DL (1.6-2.4); POTASSIUM 3.3 MMOL/L (3.6-5.0)
[2022-05-24 15:07] LABS: ALBUMIN 3.7 GM/DL (3.2-4.5); TOTAL PROTEIN 6.7 GM/DL (6.4-8.2)
--- NOTE | 2022-05-24 15:11 | ED Chest Pain ---
General Chief Complaint: Cardiac/General Problems Stated Complaint: LT ARM PAIN Nursing Triage Note: PT REPORTS LEFT ARM PAIN FROM HIS MID FOREARM TO HIS SHOULDER SINCE YESTERDAY. HAS A HX OF 2 STENTS. Source: patient Exam Limitations: no limitations History of Present Illness Date Seen by Provider: May 24, 2022 Time Seen by Provider: 14:07 Initial Comments This 72-year-old gentleman presents to the emergency room with primary complaint of left arm pain. He denies any chest pain but reports his remote LA many years ago occurred with bilateral arm pain without chest pain. He recalls the pain in his arms felt similar to the pain he has in his left arm now. The pain in his anterior left shoulder started yesterday and has worsened today. Now it radiates down into his mid forearm. He has had some shortness of breath recently but only with increased exertion as he has been moving many hay arron. He has also been walking more recently and pulling himself up into a tractor repeatedly. He took 2 Tylenol tablets this morning which did help the pain a little bit. He has history of coronary artery disease and cardiac stents. His geology faculty member is Dr. Shea at [facility]. His primary care provider is Lashell Silva in [place], [place]. Pain at this time is rated as 7/10. He is hypertensive during assessment. He has history of left shoulder replacement in the recent past. Allergies and Home Medications Allergies Coded Allergies: simvastatin (Verified Allergy, Unknown, 09/25/18) acetaminophen (Unverified Adverse Reaction, Unknown, 09/28/18) propoxyphene (Unverified Adverse Reaction, Unknown, 09/28/18) Patient Home Medication List Home Medication List Reviewed: Yes Amlodipine Besylate (Amlodipine Besylate) 10 Mg Tablet, 10 MG PO DAILY, (Reported) Entered as Reported by: OSMAR PEARL on 09/28/18 1231 Aspirin (Aspirin EC) 81 Mg Tablet.dr, 81 MG PO DAILY, (Reported) Entered as Reported by: OSMAR PEARL on 09/28/18 1231 Atenolol (Atenolol) 50 Mg Tablet, 50 MG PO DAILY, (Reported) Entered as Reported by: OSMAR PEARL on 09/28/18 1231 Benazepril HCl (Benazepril HCl) 40 Mg Tab, 40 MG PO DAILY, (Reported) Entered as Reported by: OSMAR PEARL on 09/28/18 123 Finasteride (Finasteride) 5 Mg Tablet, 5 MG PO DAILY, (Reported) Entered as Reported by: OSMAR PEARL on 09/28/18 123 Hydrochlorothiazide (Hydrochlorothiazide) 12.5 Mg Capsule, 12.5 MG PO DAILY, (Reported) Entered as Reported by: OSMAR PEARL on 09/28/18 123 Magnesium Oxide (Magnesium) 250 Mg Tablet, 250 MG PO DAILY, (Reported) Entered as Reported by: OSMAR PEARL on 09/28/18 123 Meloxicam (Meloxicam) 15 Mg Tablet, 15 MG PO DAILY, (Reported) Entered as Reported by: OSMAR PEARL on 09/28/18 123 Potassium Gluconate (Potassium) 99 Mg Tablet, 99 MG PO DAILY, (Reported) Entered as Reported by: OSMAR PEARL on 09/28/18 123 Rosuvastatin Calcium (Rosuvastatin Calcium) 20 Mg Tablet, 20 MG PO HS, (Reported) Entered as Reported by: OSMAR PEARL on 09/28/18 123 [D3] , 1,000 PO DAILY, (Reported) Entered as Reported by: OSMAR PEARL on 09/28/18 1329 [Fish Oil] , (Reported) Entered as Reported by: OSMAR PEARL on 09/28/18 123 [Flax seed] , (Reported) Entered as Reported by: OSMAR PEARL on 09/28/18 123 [Tamsulosin] 0.4 , 0.4 MG PO DAILY, (Reported) Entered as Reported by: OSMAR PEARL on 09/28/18 123 Review of Systems Review of Systems Constitutional: no symptoms reported EENTM: No Symptoms Reported Respiratory: See HPI Cardiovascular: No Symptoms Reported Gastrointestinal: No Symptoms Reported Genitourinary: No Symptoms Reported Musculoskeletal: no symptoms reported Skin: no symptoms reported Psychiatric/Neurological: No Symptoms Reported Endocrine: No Symptoms Reported Hematologic/Lymphatic: No Symptoms Reported Past Savtwvp-[id number]-[id number] Hx Patient Social History Tobacco Use?: No Use of E-Cig and/or Vaping dev: No Substance use?: No Alcohol Use?: Yes Alcohol Frequency: Once in a while Pt feels they are or have been: No Seasonal Allergies Seasonal Allergies: No Past Medical History Surgery/Hospitalization HX: Left knee surgery May 2021 Surgeries: Yes Abdominal (Colon resection), Coronary Stent, Joint Replacement (Left shoulder), Orthopedic (Back, left shoulder, left knee) Respiratory: No Cardiac: Yes Coronary Artery Disease, Heart Attack, High Cholesterol, Hypertension Neurological: No Genitourinary: No Gastrointestinal: No Musculoskeletal: No Endocrine: No HEENT: No Cancer: No Psychosocial: No Integumentary: No Blood Disorders: No Physical Exam Vital Signs Vital Signs - First Documented 05/24/22 05/24/22 14:10 18:27 Temp 36.5 Pulse 65 Resp 16 B/P (MAP) 157/73 (101) Pulse Ox 95 O2 Delivery Room Air Capillary Refill : Less Than 3 Seconds Height, Weight, BMI Height: 5'11.00" Weight: 257lbs. oz. 116.611170bq; 37.00 BMI Method:Actual General Appearance: No Apparent Distress, WD/WN, Obese HEENT: Normal ENT Inspection Neck: Normal Inspection; No JVD Respiratory: Chest Non Tender, Lungs Clear, Normal Breath Sounds, No Accessory Muscle Use, No Respiratory Distress Cardiovascular: Regular Rate, Rhythm, No Edema, No Murmur Gastrointestinal: Normal Bowel Sounds, Non Tender, Soft Extremity: Normal Inspection, No Calf Tenderness, No Pedal Edema, Other (There is tenderness to the anterior left shoulder near the biceps insertion. There is minimal tenderness proximal to the antecubital fossa. Distal exam is unremarkable. Pulses strong. Stapler Hand is normal.) Neurologic/Psychiatric: Alert, Oriented x3, No Motor/Sensory Deficits, Normal Mood/Affect Skin: Normal Color, Warm/Dry Progress/Results/Core Measures Results/Orders Lab Results Laboratory Tests Test 05/24/22 14:25 05/24/22 16:50 Range/Units White Blood Count 7.1 4.3-11.0 10^3/uL Red Blood Count 4.53 4.30-5.52 10^6/uL Hemoglobin 14.9 13.3-17.7 g/dL Hematocrit 42 40-54 % Mean Corpuscular Volume 93 80-99 fL Mean Corpuscular Hemoglobin 33 25-34 pg Mean Corpuscular Hemoglobin Concent 35 32-36 g/dL Red Cell Distribution Width 12.5 10.0-14.5 % Platelet Count 232 130-400 10^3/uL Mean Platelet Volume 10.0 9.0-12.2 fL Immature Granulocyte % (Auto) 0 % Neutrophils (%) (Auto) 69 42-75 % Lymphocytes (%) (Auto) 16 12-44 % Monocytes (%) (Auto) 10 0-12 % Eosinophils (%) (Auto) 4 0-10 % Basophils (%) (Auto) 1 0-10 % Neutrophils # (Auto) 4.9 1.8-7.8 10^3/uL Lymphocytes # (Auto) 1.2 1.0-4.0 10^3/uL Monocytes # (Auto) 0.7 0.0-1.0 10^3/uL Eosinophils # (Auto) 0.3 0.0-0.3 10^3/uL Basophils # (Auto) 0.1 0.0-0.1 10^3/uL Immature Granulocyte # (Auto) 0.0 0.0-0.1 10^3/uL Prothrombin Time 13.0 12.2-14.7 SEC INR Comment 0.9 0.8-1.4 Activated Partial Thromboplast Time 27 24-35 SEC Sodium Level 137 135-145 MMOL/L Potassium Level 3.3 L 3.6-5.0 MMOL/L Chloride Level 100 98-107 MMOL/L Carbon Dioxide Level 25 21-32 MMOL/L Anion Gap 12 5-14 MMOL/L Blood Urea Nitrogen 14 7-18 MG/DL Creatinine 0.83 0.60-1.30 MG/DL Estimat Glomerular Filtration Rate 92 BUN/Creatinine Ratio 17 Glucose Level 129 H 70-105 MG/DL Calcium Level 8.8 8.5-10.1 MG/DL Corrected Calcium 9.0 8.5-10.1 MG/DL Magnesium Level 2.1 1.6-2.4 MG/DL Total Bilirubin 0.4 0.1-1.0 MG/DL Aspartate Amino Transf (AST/SGOT) 14 5-34 U/L Alanine Aminotransferase (ALT/SGPT) 15 0-55 U/L Alkaline Phosphatase 69 40-136 U/L Myoglobin 33.6 <72.0 NG/ML Troponin I < 0.30 < 0.30 <0.30 NG/ML Total Protein 6.7 6.4-8.2 GM/DL Albumin 3.7 3.2-4.5 GM/DL My Orders Orders - COOKIE JIMENEZ MD Cbc With Automated Diff (05/24/22 14:23) Magnesium (05/24/22 14:23) Chest 1 View Ap/Pa Only (05/24/22 14:23) Ekg Tracing (05/24/22 14:23) Comprehensive Metabolic Panel (05/24/22 14:23) Myoglobin Serum (05/24/22 14:23) Protime With Inr (05/24/22 14:23) Partial Thromboplastin Time (05/24/22 14:23) O2 (05/24/22 14:23) Monitor-Rhythm Ecg Trace Only (05/24/22 14:) Aspirin Chewable Tablet (Baby Aspirin Ch (05/24/22 14:30) Ed Iv/Invasive Line Start (05/24/22 14:) Troponin I Fs (05/24/22 14:23) Nitroglycerin 0.4 Mg Btl 25's (Nitrostat (05/24/22 14:30) Troponin I Fs (05/24/22 16:25) Ekg Tracing (05/24/22 17:09) Medications Given in ED Vital Signs/I&O 05/24/22 05/24/22 14:10 18:27 Temp 36.5 36.5 Pulse 65 62 Resp 16 18 B/P (MAP) 157/73 (101) 177/97 Pulse Ox 95 100 O2 Delivery Room Air Blood Pressure Mean: 101 Progress Progress Note : Progress Note Patient's pain improved from 7/10 down to 5 over 1/10 nitroglycerin. After 2 nitroglycerin it improved to 3/10. Pain eventually decreased to 1/10 without any further interventions. Labs were relatively unremarkable including CBC, C MP, magnesium, myoglobin, and troponin. All labs were reviewed in their entirety by me. Repeat troponin more than 2 hours after the initial was also negative. Patient's blood pressure did improve after the nitroglycerin but crept up again. Overall, pain was atypical in nature. Pain was isolated to the arm and patient denied ever having chest pain. Patient was advised to follow closely with his geology faculty member and call in the morning for further direction. He is to discuss both blood pressure and the pain in his arm. Chest x-ray was viewed by me and report reviewed. The prosthetic left shoulder joint was noted. No acute abnormalities were appreciated by my interpretation. Radiologist's interpretation is noted below. ECG x2 were reviewed. There were no ischemic changes by my interpretation. See below. See discharge instructions for further discussion. EKG #1: EKG Time: 14:28 Rate: 72 Rhythm: Normal Sinus Comment Normal sinus rhythm with no ST elevation or depression. Intraventricular conduction delay noted. No axis deviation. PVC noted. EKG #2: EKG Time: 17:18 Rate: 61 ECG Impression: Normal Comment Normal sinus rhythm with no ST elevation or depression. Intraventricular conduction delay noted. Left axis deviation by automated read. PVC noted. Diagnostic Imaging Diagonstic Imaging: Xray Plain Films/CT/US/NM/MRI: chest Comments Chest x-ray viewed by me and report reviewed. See report below: NAME: KILEY VERA MED REC#: [id number] PT STATUS: REG ER : 1950 PHYSICIAN: COOKIE JIMENEZ MD ADMIT DATE: 05/24/22/ER FS Signed Date of Exam:05/24/22 CHEST 1 VIEW AP/PA ONLY INDICATION: CAD, Left arm pain. TECHNIQUE: Single view chest 2:20 PM. CORRELATION STUDY: 06/29/2021 FINDINGS: Stable enlargement and prominence of the heart and mediastinum. Vasculature overall within normal limits. The lungs are clear with no consolidating infiltrate. There is no significant effusion or pneumothorax. Partial visualization left humeral prosthesis. IMPRESSION: 1. Stable cardiac enlargement with prominent mediastinum. No overt failure. Dictated by: Dictated on workstation # [id number] Dict: 05/24/22 1447 Trans: 05/24/22 1602 CARYL [id number] Interpreted by: YAMINI PETE DO Electronically signed by: YAMINI PETE DO 05/24/22 1602 Departure Impression Primary Impression: Left arm pain Additional Impressions: Coronary artery disease Qualified Codes: I25.119 - Atherosclerotic heart disease of [place] coronary artery with unspecified angina pectoris Hypertension Qualified Codes: I10 - Essential (primary) hypertension Disposition: 01 HOME, SELF-CARE Condition: Improved Departure-Patient Inst. Decision time for Depature: 18:32 Referrals: NO,LOCAL PHYSICIAN (PCP/Family) Primary Care Physician Patient Instructions: High Blood Pressure in Adults, Coronary Artery Disease (DC) Add. Discharge Instructions: Your blood pressure was high in the emergency room. It is uncertain how much of the elevation is secondary to pain and stress of the medical environment versus uncontrolled blood pressure. Please continue with your current medications and discuss your high blood pressure with your geology faculty member as soon as possible. Please call their office in the morning. Although no cardiac events or damage was detected in the emergency room, your work-up in the emergency room cannot completely rule out heart disease as a cause for your pain. This should be discussed further with your geology faculty member. You may continue taking Tylenol (acetaminophen) up to 1000 mg every 6 hours as needed for pain. Reduce activities that seem to exacerbate your pain. You may try using nitroglycerin for treatment of your pain. If you have persistent pain that is not rapidly relieved by nitroglycerin, Tylenol, or rest, please return to the emergency room. Please also return to the emergency room if you have chest pain specifically. Also return to the emergency room if you have pain accompanied by other symptoms of heart disease such as unusual sweating, lightheadedness, unexplained shortness of breath, vomiting, etc. Avoid ingesting substances that may exacerbate high blood pressure such as excessive salt, stimulants such as caffeine, nicotine, energy drinks, diet pi lls, medications for attention deficit disorder, decongestant medicines, etc. Also work on lifestyle changes to improve your blood pressure, specifically weight loss. If a cardiac cause of your pain is ruled out, please discuss it further with your primary care provider. Your pain could be secondary to overuse or muscle strain, or could be nerve related due to a problem in your neck. Further work- up which might include imaging of the neck may be warranted at the discretion of your primary care provider. Call with questions or concerns. All discharge instructions reviewed with patient and/or family. Voiced understanding. COOKIE JIMENEZ MD May 24, 2022 15:11
[2022-05-24 18:27] VITALS: BP 177/97
== END 2022-05-24 18:41 | disposition home or self-care (01) ==
LOC: EDUNIT# 14:04 → ER FS 14:05
DX: I25.10 Atherosclerotic heart disease of native coronary artery without angina pectoris (principal); I10 Essential (primary) hypertension; M25.512 Pain in left shoulder; I25.2 Old myocardial infarction; E66.9 Obesity, unspecified; Z68.37 Body mass index [BMI] 37.0-37.9, adult; Z95.5 Presence of coronary angioplasty implant and graft; Z96.612 Presence of left artificial shoulder joint
CPT/HCPCS: 36415; 71045; 80053; 83735; 83874; 84484; 85025; 85610; 85730; 93005; 93041